=== PATIENT | male | born 1955 ===

== ENCOUNTER 2024-01-16 08:51 | Day surgery (SDC) | payer OTHER ==
[2024-01-12 11:09] LABS: HEMATOCRIT 45.1 % (39.0-48.0); HEMOGLOBIN 15.4 g/dL (13-16.00); MEAN CELL VOLUME 92.3 fL (80.0-100.00); MEAN CORPUSCULAR HEMOGLOBIN 31.5 pg (27.00-32.0); MEAN CORPUSCULAR HGB CONC 34.1 g/dl (32.0-36.0); PLATELET COUNT 242 K/uL (150-450); RED BLOOD COUNT 4.89 M/uL (4.00-6.00); RED CELL DISTRIBUTION WIDTH 14.1 % (11.5-14.5)
[2024-01-12 11:28] LABS: URINE APPEARANCE Clear; URINE BILIRRUBIN Negative (NEGATIVE); URINE BLOOD Negative; URINE COLOR Yellow; URINE GLUCOSE Negative (NEGATIVE); URINE LEUKOCYTE Negative; URINE NITRATE Negative; URINE PROTEIN Negative (NEGATIVE); URINE UROBILINOGEN 0.2 E.U./dl
[2024-01-12 11:40] LABS: URINE EPITHELIAL CELLS 0.7 uL (0.0-38.8); URINE RBC 1.8 uL (0.0-20.8); URINE WBC 0.3 uL (0.0-23.2)
[2024-01-12 11:58] LABS: CALCIUM 9.4 mg/dL (8.5-10.1); CREATININE SERUM 0.91 mg/dL (0.70-1.30); GFR 82.61; POTASSIUM 4.94 mEq/L (3.5-5.1)
[2024-01-12 12:04] LABS: INR 1.09; PARTIAL THROMBOPLASTIN TIME 27.9 SECONDS (22.0-34.0); PROTHROMBIN TIME 11.4 SECONDS (9.0-11.5)
[~2024-01-16 08:51] MED LIST: AVALIDE 300-121 EACH PO; CRESTOR20 MG; MONTELUKAST 10 MG; PLAVIX75 MG; ZETIA10 MG PO
[2024-01-16] MEDS ORDERED: GENTAMICIN SULFATE 40 MG/ML VIAL ONE (10:54)
[2024-01-16] MEDS ORDERED: CHLORHEXIDINE GLUCONATE 120 ML BOTTLE TOP ONE (11:20)
[2024-01-16] MEDS ORDERED: TAMSULOSIN HCL 0.4 MG CAP PO ONE ×2 (12:15→14:27)
[2024-01-16] MEDS ORDERED: GENTAMICIN SULFATE 40 MG/ML VIAL IV ONE (12:45)
== END 2024-01-16 17:45 | disposition home or self-care (01) ==
LOC: CIR.AMB 08:51
PROVIDERS: ATTEND Urology
DX: C67.9 Malignant neoplasm of bladder, unspecified (principal); Z88.6 Allergy status to analgesic agent; Z20.822 Contact with and (suspected) exposure to COVID-19